=== PATIENT | female | born 1995 | race Caucasian/White ===

== ENCOUNTER 2017-09-01 18:04 | Emergency (ER) | payer OTHER ==
[~2017-09-01] VITALS: Ht 149.9 cm; Wt 66.0 kg
[2017-09-01 18:10] VITALS: BP 129/82
== END 2017-09-01 21:02 | disposition home or self-care (01) ==
LOC: ED 18:04
DX: O23.41 Unspecified infection of urinary tract in pregnancy, first trimester (principal); R07.9 Chest pain, unspecified; Z3A.00 Weeks of gestation of pregnancy not specified